=== PATIENT | male | born 1980 | race Caucasian/White ===

== ENCOUNTER 2018-03-01 21:52 | Emergency (ER) | payer SELFPAY ==
[~2018-03-01] VITALS: Ht 180.3 cm; Wt 79.4 kg
--- NOTE | 2018-03-01 23:01 | NUR ---
PATIENT LEFT WITH SEEN BY ABISAI. PATIENT STATING "THIS HOSPITAL IS NOT IN MY NET WORK. I WILL GO TO HOSPITAL IN MY NET WORK."
== END 2018-03-01 23:03 | disposition left against medical advice (07) ==
LOC: ER 21:54
DX: Z53.21 Procedure and treatment not carried out due to patient leaving prior to being seen by health care provider (principal)
CPT/HCPCS: A4663